=== PATIENT | male | born 1940 | race Caucasian/White ===

== ENCOUNTER → 2017-11-28 | Outpatient (CLI) | payer BC ==
[2014-02-14 12:19] VITALS: BMI 22.2
[~2017-11-28] MED LIST: ACET-2031 PO; ASP325 PO; ASPI-715 PO; ASPI-870 PO; ATOR20TA22 PO; ATOR20TA65 PO; ATRO5DRO OP; BACDS PO; CARB-71 PO; CEPH-13 PO; CHOL10005 PO; FINA5TAB67 PO; FLU180SY9 IM; FLU45SYR17 IM; FLU45SYR25 IM ONLY; LEVO-3 PO; LEVO150T72 PO; LISI-362 PO; LISI2.5T60 PO; METF-410 PO; METXR500 PO; MULT-820 PO; OMEP-153 PO; PHEN100C82 PO; PNEI IJ; PNEU0.5D3 IM; TAM4 PO; TAMS0.4C70 PO; [UNRECOGNIZED DRUG - CODE] PO
[2017-11-28 15:15] LABS: PLATELET COUNT, AUTOMATED 205 K/uL (150-450)
[2017-11-28 15:25] LABS: LDL CHOLESTEROL 78 mg/dl
== END ==
LOC: LAB 14:52
PROVIDERS: ATTEND Internal Medicine
DX: E78.5 Hyperlipidemia, unspecified (principal); I10 Essential (primary) hypertension; E03.9 Hypothyroidism, unspecified; G20 Parkinson's disease; E11.9 Type 2 diabetes mellitus without complications
CPT/HCPCS: 36415; 81001; 82040; 82247; 82310; 82374; 82435; 82465; 82565; 82947; 83036; 83718; 84075; 84132; 84155; 84295; 84443; 84450; 84460; 84478; 84520; 85025

== ENCOUNTER → 2017-12-19 | Outpatient (CLI) | payer BC ==
[2014-02-14 12:19] VITALS: BMI 22.2
[~2017-12-19] MED LIST changes: +BARIUM SULFATE 148 GM POWDER ONE; +BARIUM SULFATE 240 ML ORAL SUS (NECTAR) ONE; +LEVO88TA45 PO; -METF-410 PO; +METF-411 PO
--- NOTE | 2017-12-19 17:15 | RADIOLOGY IMAGING REPORT ---
FACILITY: [facility] [place] PATIENT NAME: Luis Eduardo Alvarado : 1940 MR: [id number] V: [id number] EXAM DATE: ORDERING PHYSICIAN: URIEL MAYEN TECHNOLOGIST: Location: [facility] [place] Patient: Luis Eduardo Alvarado : 1940 Visit/Account:[id number] Date of Sevice: 12/19/2017 ADDENDUM #1 Of the first sentence of the findings section should state also the fluoroscopic assistance was provi ded. Report Dictated By: Mary Lambert MD at 12/19/2017 5:12 PM Report E-Signed By: Mary Lambert MD at 12/19/2017 5:12 PM ORIGINAL REPORT Exam type: ESOPH VIDEO SWALLOWING History: The consistencies, history of throat cancer Comparison: Esophagram November 21, 2012. Findings: The modified barium swallow was performed by the speech pathologist. The patient received various li quids and food substances. There was some silent aspiration observed during the examination. Please see the speech pathologist report for complete details. The fluoroscopy dose area product was 780.8 5 micro-Araiza per meter squared IMPRESSION: 1. As above Report Dictated By: Mary Lambert MD at 12/19/2017 5:09 PM Report E-Signed By: Mary Lambert MD at 12/19/2017 5:11 PM WSN:[id number]
--- NOTE | 2017-12-20 15:00 | SLP MODIFIED BARIUM SWALLOW ---
Speech Language Pathology Modified Barium Swallow Evaluation Report Date of Evaluation: 12/19/2017 Patient Name: Luis Eduardo Alvarado Jr. Patient : 1940 Physician: Néstor Miguel MD Clinician: Jillian Vang M.S., CCC-DIRECTORY ASSISTANCE OPERATOR, Deja Coats B.A., [facility] BACKGROUND The patient is a 77 yr old male. He was referred for an MBS by his physician to assess swallow structure and function as indicated by s/s of pharyngeal dysphagia including coughing/choking with liquids . The patient has a history of throat cancer, right side [place] Palsy and Parkinsons. The patient reported present level of diet modification as thicken liquids. No recent hx of pneumonia. 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 Trials were repeated in the anterior view with the following consistencies: nectar thick barium liquid with straw sips, barium marked puree. Cup rim sips were not trialed d/t the patient reporting using only straws with liquids. ORAL STAGE Thin Liquids: Not presented. [place] Thick Liquids: Moderate dysphagia. Anterior spillage. Multiple attempts to suck liquid through the straw d/t decreased labial seal. Delayed swallow initiation. Compensatory: Straw sips. Pureed Foods: Mild dysphagia. Slow A-P transit. Delayed swallow initiation. Compensatory: Multiple swallows to clear oral cavity. Mechanical Soft: Mild Dysphagia. Slow A-P transit. Delayed swallow initiation. Compensatory: none used Regular Foods: Moderate-Severe dysphagia. Unproductive/repetitive mastication. Meat became lodged on the right side between dentures and buccal surface. Required multiple finger sweeps to remove from oral cavity. Compensatory: Lingual sweep- unsuccessful, chin tuck- unsuccessful, liquid wash- unsuccessful PHARYNGEAL STAGE [place] Thick Liquids: Moderate dysphagia. Significant residuals in epiglottic vallecula, pyriform sinus and lower posterior pharyngeal wall. Pyriform sinus and posterior pharyngeal wall largely cleared with cued multiple swallow and chin tuck. Without chin tuck: Trace silent aspiration in 3/6 trials cleared with prompt to cough and multiple swallows. Penetration with accumulation in 2/6 trials cleared with prompt to cough and multiple swallows. With chin tuck: Penetration with accumulation in 2/5 trials cleared with prompt to cough. Flash penetration in 2/5 trials cleared with multiple swallows. Pureed Food: Moderate dysphagia. Significant residuals on lower anterior and posterior pharyngeal wall and in epiglottic vallecula cleared with cued multiple swallows and chin tuck. Mechanical Soft Foods: Mild dysphagia. Mild residuals on lower anterior and posterior pharyngeal wall and in epiglottic vallecula cleared with cued multiple swallow and chin tuck. Regular Food Consistency: Pt s attempts to manipulate the bolus for AP transit to the oropharynx were unsuccessful. Bolus had to be removed manually. Anterior/Posterior View During trials of nectar thick liquid and puree, accumulation of stasis was observed on the right side most likely due to the patients facial palsy. Compensatory head turns to the right and the left were unsuccessful michaela to reducing or clearing stasis. Penetration/Aspiration Scale*: [place] thick liquids: Score of 8=~material enters the airway, passes below the vocal folds, and no effort is made to eject. Puree: Score of 1= Contrast does not enter airway Soft solids: Score of 1= material does not enter airway Regular solids= unsuccessful attempts *(Eve et al. 1996) ESOPHAGEAL STAGE Peristaltic movement appears to be WNL Cervical Esophagus: Materials witnessed clearing from cervical esophagus with multiple swallows Thoracic Esophagus: Materials witnessed clearing from upper/mid/lower thoracic esophagus. Barium pill required compensation from liquid wash, addition of puree and multiple swallows to clear esophagus ANIBAL: none witnessed. Laryngopharyngeal Reflux (LPR): none witnessed BARIUM PILL: Patient reported taking pills with saliva with no additional liquids at home. Multiple trials attempted. Trial #1: 1cm barium pill taken with saliva swallow. Pill became lodged in pyriform sinus above UES. Pill moved to the level of approximately the 6th cervical vertebrae with second dry swallow. Pill moved to mid thoracic esophagus with third dry swallow. Puree was added for fourth and fifth swallows to clear pill from esophagus. Moderate oral and pharyngeal dysphagia witnessed. Trial #2: 1 cm barium pill repeated with puree. Pill became lodged just below UES. Second swallow moved pill to mid thoracic esophagus. Three additional swallows with puree were required to clear the pill from the esophagus. No significant oral or pharyngeal dysphagia witnessed with pill this trial SUMMARY Aspiration Risk: Elevated. Aspiration during swallow, without cough response witnessed. Penetration of post swallow nectar thick liquid with accumulation on vocal folds from epiglottic vallecula stasis witnessed. Patient was prompted to cough to penetrated/aspirated material. This technique was largely successful. Significant stasis in epiglottic vallecula, pyriform sinus and lower anterior and posterior pharyngeal pettit following thin/nectar liquids and food swallows posts increased aspiration risk. Cues for multiple swallows to clear residuals on anterior and posterior pharyngeal wall and epiglottic vallecular with nectar thick liquid, puree and mechanical soft consistencies: Successful Cues for chin tuck to protect airway during all consistencies: Successful Cues for head turn to the left or right to decrease right stasis and residuals- unsuccessful 1.Dysphagia Severity Rating Scale (Gramigna, 2006; Sonja et. al., 1990) 4- Moderate dysphagiasignificant potential for aspiration exists. Trace aspiration of one or more consistencies was seen under videofluoroscopy. Patient may eat certain consistencies by using specific techniques to minimize potential for aspiration and/or to facilitate swallowing. Supervision at mealtimes required to implement compensatory/safety strategies. May require supplemental nutrition orally or via feeding tube. Functional Oral Intake Scale (FOIS) Level 5: Total oral intake of multiple consistencies requiring special preparation: Thickened liquids and moist/soft foods. Use compensatory techniques (described below) with all consistencies. RECOMMENDATIONS Presented verbally and in writing to patient after examination 1. Outpatient/Home Health Speech Therapy: to address oral / laryngeal / pharyngeal / dysphagia per discretion of DIRECTORY ASSISTANCE OPERATOR and physician. 2. Diet Modifications: [place] thick liquids only. Moist/soft foods. 3. Pills: Crush pills when possible. Take additional pills with multiple swallows of puree. RECOMMENDED COMPENSATORY TECHNIQUES Presented verbally and in writing to patient after examination Compensatory Techniques: -Avoid problematic foods -Add extra moisture to foods -Pt should be cued for multiple swallows on every swallow of liquid and food to clear pharyngeal stasis on all consistencies. -Pt should be cued to cough/clear throat following liquid swallows -Perform chin tuck with all swallows on all consistencies. -Remain upright approximately 30 following meals/liquids. Thank you for this referral. Please call [phone] to contact the DIRECTORY ASSISTANCE OPERATOR. Jillian Vang M.S., [facility]-DIRECTORY ASSISTANCE OPERATOR MTDD
--- NOTE | 2017-12-20 15:45 | SLP MODIFIED BARIUM SWALLOW ---
Speech Language Pathology Modified Barium Swallow Evaluation Report Date of Evaluation: 12/19/2017 Patient Name: Luis Eduardo Alvarado Jr. Patient : 1940 Physician: Néstor Miguel MD Clinician: Jillian Vang M.S., CCC-EXHIBITION SPECIALIST, Deja Coats B.A., [facility] [place] BACKGROUND The patient is a 77 yr old male. He was referred for an MBS by his physician to assess swallow structure and function as indicated by s/s of pharyngeal dysphagia including coughing/choking with liquids . The patient has a history of throat cancer, right side [place] Palsy and Parkinsons. The patient reported present level of diet modification as thicken liquids. No recent hx of pneumonia. Oxygen Supplementation: No Level of Consciousness: Non altered Cognitive/Linguistic: WNL Orientation: x3 Language: -expressive: nonaphasic -receptive: nonaphasic Speech: -non-apraxic -non-dysarthric Voice -Quality: Breathy, Soft -Dysphonia: none -Nasal emission: No -Hypernasality: No -Wet Vocal Quality: No -Sialorrhea: Yes Non-verbal Oral Structure and Function: Right side [place] Palsy with right side paresis of lower face, Pt unable to perform lingual sweep on right side, Open resting mouth position, Pt reported wearing ill-fitting dentures resulting in difficulty chewing Pain with Swallow: Denies MODIFIED BARIUM SWALLOW In conjunction with radiology, lateral view with trials of the following consistencies: nectar thick barium liquid with straw sips, barium marked pureed , mechanical soft, regular food consistencies, and a 1cm barium pill x2. Trials were repeated in the anterior view with the following consistencies: nectar thick barium liquid with straw sips, barium marked puree. Cup rim sips were not trialed d/t the patient reporting using only straws with liquids. ORAL STAGE Thin Liquids: Not presented. [place] Thick Liquids: Moderate dysphagia. Anterior spillage. Multiple attempts to suck liquid through the straw d/t decreased labial seal. Delayed swallow initiation. Compensatory: Straw sips. Pureed Foods: Mild dysphagia. Slow A-P transit. Delayed swallow initiation. Compensatory: Multiple swallows to clear oral cavity. Mechanical Soft: Mild Dysphagia. Slow A-P transit. Delayed swallow initiation. Compensatory: none used Regular Foods: Moderate-Severe dysphagia. Unproductive/repetitive mastication. Meat became lodged on the right side between dentures and buccal surface. Required multiple finger sweeps to remove from oral cavity. Compensatory: Lingual sweep- unsuccessful, chin tuck- unsuccessful, liquid wash- unsuccessful PHARYNGEAL STAGE [place] Thick Liquids: Moderate dysphagia. Significant residuals in epiglottic vallecula, pyriform sinus and lower posterior pharyngeal wall. Pyriform sinus and posterior pharyngeal wall largely cleared with cued multiple swallow and chin tuck. Without chin tuck: Trace silent aspiration in 3/6 trials cleared with prompt to cough and multiple swallows. Penetration with accumulation in 2/6 trials cleared with prompt to cough and multiple swallows. With chin tuck: Penetration with accumulation in 2/5 trials cleared with prompt to cough. Flash penetration in 2/5 trials cleared with multiple swallows. Pureed Food: Moderate dysphagia. Significant residuals on lower anterior and posterior pharyngeal wall and in epiglottic vallecula cleared with cued multiple swallows and chin tuck. Mechanical Soft Foods: Mild dysphagia. Mild residuals on lower anterior and posterior pharyngeal wall and in epiglottic vallecula cleared with cued multiple swallow and chin tuck. Regular Food Consistency: Pt s attempts to manipulate the bolus for AP transit to the oropharynx were unsuccessful. Bolus had to be removed manually. Anterior/Posterior View During trials of nectar thick liquid and puree, accumulation of stasis was observed on the right side most likely due to the patients facial palsy. Compensatory head turns to the right and the left were unsuccessful michaela to reducing or clearing stasis. Penetration/Aspiration Scale*: [place] thick liquids: Score of 8=~material enters the airway, passes below the vocal folds, and no effort is made to eject. Puree: Score of 1= Contrast does not enter airway Soft solids: Score of 1= material does not enter airway Regular solids= unsuccessful attempts *(Eve et al. 1996) ESOPHAGEAL STAGE Peristaltic movement appears to be WNL Cervical Esophagus: Materials witnessed clearing from cervical esophagus with multiple swallows Thoracic Esophagus: Materials witnessed clearing from upper/mid/lower thoracic esophagus. Barium pill required compensation from liquid wash, addition of puree and multiple swallows to clear esophagus ANIBAL: none witnessed. Laryngopharyngeal Reflux (LPR): none witnessed BARIUM PILL: Patient reported taking pills with saliva with no additional liquids at home. Multiple trials attempted. Trial #1: 1cm barium pill taken with saliva swallow. Pill became lodged in pyriform sinus above UES. Pill moved to the level of approximately the 6th cervical vertebrae with second dry swallow. Pill moved to mid thoracic esophagus with third dry swallow. Puree was added for fourth and fifth swallows to clear pill from esophagus. Moderate oral and pharyngeal dysphagia witnessed. Trial #2: 1 cm barium pill repeated with puree. Pill became lodged just below UES. Second swallow moved pill to mid thoracic esophagus. Three additional swallows with puree were required to clear the pill from the esophagus. No significant oral or pharyngeal dysphagia witnessed with pill this trial SUMMARY Aspiration Risk: Elevated. Aspiration during swallow, without cough response witnessed. Penetration of post swallow nectar thick liquid with accumulation on vocal folds from epiglottic vallecula stasis witnessed. Patient was prompted to cough to penetrated/aspirated material. This technique was largely successful. Significant stasis in epiglottic vallecula, pyriform sinus and lower anterior and posterior pharyngeal pettit following thin/nectar liquids and food swallows posts increased aspiration risk. Cues for multiple swallows to clear residuals on anterior and posterior pharyngeal wall and epiglottic vallecular with nectar thick liquid, puree and mechanical soft consistencies: Successful Cues for chin tuck to protect airway during all consistencies: Successful Cues for head turn to the left or right to decrease right stasis and residuals- unsuccessful 1.Dysphagia Severity Rating Scale (Gramigna, 2006; Sonja et. al., 1990) 4- Moderate dysphagiasignificant potential for aspiration exists. Trace aspiration of one or more consistencies was seen under videofluoroscopy. Patient may eat certain consistencies by using specific techniques to minimize potential for aspiration and/or to facilitate swallowing. Supervision at mealtimes required to implement compensatory/safety strategies. May require supplemental nutrition orally or via feeding tube. Functional Oral Intake Scale (FOIS) Level 5: Total oral intake of multiple consistencies requiring special preparation: Thickened liquids and moist/soft foods. Use compensatory techniques (described below) with all consistencies. RECOMMENDATIONS Presented verbally and in writing to patient after examination 1. Outpatient/Home Health Speech Therapy: to address oral / laryngeal / pharyngeal / dysphagia per discretion of EXHIBITION SPECIALIST and physician. 2. Diet Modifications: [place] thick liquids only. Moist/soft foods. 3. Pills: Crush pills when possible. Take additional pills with multiple swallows of puree. RECOMMENDED COMPENSATORY TECHNIQUES Presented verbally and in writing to patient after examination Compensatory Techniques: -Avoid problematic foods -Add extra moisture to foods -Pt should be cued for multiple swallows on every swallow of liquid and food to clear pharyngeal stasis on all consistencies. -Pt should be cued to cough/clear throat following liquid swallows -Perform chin tuck with all swallows on all consistencies. -Remain upright approximately 30 following meals/liquids. Thank you for this referral. Please call [facility] [place] at [phone] to contact the EXHIBITION SPECIALIST. Jillian Vang M.S., [facility]-EXHIBITION SPECIALIST [place]
== END ==
LOC: RAD 09:53
PROVIDERS: ATTEND Internal Medicine
DX: G20 Parkinson's disease (principal); Z85.819 Personal history of malignant neoplasm of unspecified site of lip, oral cavity, and pharynx
CPT/HCPCS: 74230

== ENCOUNTER → 2018-02-13 | Outpatient (CLI) | payer BC ==
[2014-02-14 12:19] VITALS: BMI 22.2
[~2018-02-13] MED LIST changes: -BARIUM SULFATE 148 GM POWDER ONE; -BARIUM SULFATE 240 ML ORAL SUS (NECTAR) ONE
== END ==
LOC: LAB 09:11
PROVIDERS: ATTEND Urology
DX: R97.20 Elevated prostate specific antigen [PSA] (principal)
CPT/HCPCS: 36415; 84153

== ENCOUNTER 2018-04-08 09:56 | Emergency (ER) | payer BC ==
[2014-02-14 12:19] VITALS: Wt 74.6 kg
--- NOTE | 2018-04-08 10:00 | ER Report ---
History and Physical Time Seen By MD: 10:00 HPI/ROS CHIEF COMPLAINT: Seizure HISTORY OF PRESENT ILLNESS: Patient is a 77-year-old male who lives in [facility]. He is brought in by family for concern of 2 seizures that occurred in the last 24 hours. According to the of the patient had a seizure in the early hours of this morning that lasted approximately 2-3 minutes. She described as tonic-clonic type seizures. The seizure resolved spontaneously and the patient went back to sleep. Later a this morning he had a 2nd similar type of seizure. Patient does have a known history of seizure disorder and currently takes Dilantin. Patient's states that she he has been compliant with his medications. Patient also has a history of Parkinson's disease and drooling from the right side of the mouth with history of Baires's palsy years ago. There is no history of recent traumatic head injury. Patient is not on any anticoagulation. notes that over the last 24 hours the patient seems much more weak and not himself. REVIEW OF SYSTEMS: Constitutional: No fever, no chills. Eyes: No discharge. ENT: No sore throat. Drooling Cardiovascular: No chest pain, no palpitations. Respiratory: No cough, no shortness of breath. Gastrointestinal: No abdominal pain, no vomiting. Genitourinary: No hematuria. Musculoskeletal: No back pain. Skin: No rashes. Neurological: Seizure, history of Parkinson's disease Allergies: Coded Allergies: No Known Drug Allergies (Unverified , 02/13/14) Home Meds Active Scripts Atorvastatin Calcium (ATORVASTATIN CALCIUM) 20 Mg Tablet, 1 TAB PO QDAY, #90 TAB 3 Refills Prov:URIEL MAYEN MD 12/18/17 Levothyroxine Sodium (LEVOTHYROXINE SODIUM) 88 Mcg Tablet, 88 MCG PO QDAY, #90 TAB 3 Refills Prov:URIEL MAYEN MD 11/30/17 Carbidopa/Levodopa (SINEMET 25-100 MG TABLET) 1 Each Tablet, 1 EACH PO TID, #270 TAB 3 Refills Prov:URIEL MAYEN MD 09/04/16 Tamsulosin Hcl (TAMSULOSIN HCL) 0.4 Mg Cap.er.24h, 1 CAP PO DAILY, #90 CAP 3 Refills Prov:URIEL MAYEN MD 09/04/16 Finasteride (FINASTERIDE) 5 Mg Tablet, 1 TAB PO QDAY, #90 TAB 3 Refills Prov:RUIEL MAYEN MD 09/04/16 Reported Medications Cholecalciferol (Vitamin D3) (VITAMIN D3) 1,000 Unit Tablet, 1000 TAB PO DAILY, #100 TAB 4 Refills 12/01/14 Aspirin (Children's Aspirin) 81 Mg Tab.chew, 1 TAB PO DAILY, #100 TAB 4 Refills 08/03/14 Past Medical/Surgical History History of Parkinson's disease, seizures, DVT, hyperlipidemia, benign prostatic hypertrophy, type II diabetes, hypothyroidism Hx Smoking: Yes Smoking Status: Former Smoker Hx Substance Use Disorder: No Hx Alcohol Use: Yes Constitutional Vital Sign - Last 24 Hours 04/08/18 04/08/18 04/08/18 04/08/18 09:56 09:59 10:03 10:11 Temp 97.9 Pulse ??? 85 82 Resp 20 28 B/P (MAP) 157/83 157/83 (107) Pulse Ox 93 90 O2 Delivery Room Air 04/08/18 04/08/18 04/08/18 04/08/18 10:26 10:30 10:41 10:56 Pulse 83 78 75 Resp 20 28 19 B/P (MAP) 127/68 (87) Pulse Ox 91 89 90 04/08/18 04/08/18 04/08/18 04/08/18 11:00 11:11 11:26 11:30 Pulse ??? 86 Resp 28 B/P (MAP) ???/??? (2095) 134/80 (98) Pulse Ox 91 04/08/18 04/08/18 04/08/18 04/08/18 11:41 11:46 12:00 12:01 Pulse 226 202 203 Resp 13 10 20 B/P (MAP) 133/86 (102) Pulse Ox 86 86 76 04/08/18 04/08/18 04/08/18 04/08/18 12:16 12:30 12:31 12:46 Pulse 82 76 79 Resp 20 20 24 B/P (MAP) 206/199 (201) Pulse Ox 97 97 95 04/08/18 04/08/18 04/08/18 04/08/18 13:00 13:01 13:05 13:30 Pulse 91 Resp 17 B/P (MAP) 243/196 (212) 155/112 (126) 143/68 (93) Pulse Ox 97 04/08/18 13:31 Pulse 84 Resp 25 Pulse Ox 96 Physical Exam General/Constitutional: Patient is awake, alert, nontoxic frail appearance with severe kyphosis of the thoracic spine. Baseline resting tremor Head: Normocephalic and atraumatic. Eyes: Conjunctival clear, Pupils are equal and reactive to light. Extraocular muscles are intact and symmetrical. Sclera are clear and anicteric. Ears:External canals are clear. Tympanic membranes are clear with normal landmarks and light reflex. Nares: No rhinorrhea or bleeding. Turbinates are pink and moist. Oropharyngeal: Mucous membranes are quite dry there is no pharyngeal erythema Neck: Supple, no adenopathy. Cardiovascular: Heart is regular rate and rhythm without audible murmurs, rubs or gallops. Pulmonary: Lungs are clear to auscultation bilaterally. There are no wheezes, rales, or rhonchi. Chest rise is symmetrical Abdomen: Soft, nontender, no guarding or peritoneal signs. Extremities: No gross deformities, No peripheral cyanosis. Resting tremor Neuro: Alert and oriented Skin: No rashes, skin is warm dry and well perfused. Medical Decision Making Data Points Result Diagram: 04/08/18 1031 04/08/18 1031 Laboratory Hematology Test 04/08/18 10:21 04/08/18 10:31 04/08/18 11:25 Whole Blood Glucose 105 mg/DL (75-110) Red Blood Count 4.79 M/uL (4.00-5.60) Mean Corpuscular Volume 91.1 fL (80.0-96.0) Mean Corpuscular Hemoglobin 31.0 pg (26.0-33.0) Mean Corpuscular Hemoglobin Concent 34.1 g/dL (32.0-36.0) Red Cell Distribution Width 13.9 % (11.5-14.5) Mean Platelet Volume 7.2 fL (7.2-11.1) Neutrophils (%) (Auto) 90.6 % (39.4-72.5) Lymphocytes (%) (Auto) 4.6 % (17.6-49.6) Monocytes (%) (Auto) 4.5 % (4.1-12.4) Eosinophils (%) (Auto) 0.0 % (0.4-6.7) Basophils (%) (Auto) 0.3 % (0.3-1.4) Nucleated RBC Relative Count (auto) 0.0 /100WBC Neutrophils # (Auto) 8.6 K/uL (2.0-7.4) Lymphocytes # (Auto) 0.4 K/uL (1.3-3.6) Monocytes # (Auto) 0.4 K/uL (0.3-1.0) Eosinophils # (Auto) 0.0 K/uL (0.0-0.5) Basophils # (Auto) 0.0 K/uL (0.0-0.1) Nucleated RBC Absolute Count (auto) 0.00 K/uL Prothrombin Time 14.0 seconds (12.0-14.4) Prothromb Time International Ratio 1.08 Activated Partial Thromboplast Time 33 seconds (23-35) Sodium Level 138 mmol/L (137-145) Potassium Level 3.4 mmol/L (3.5-5.0) Chloride Level 104 mmol/L (98-107) Carbon Dioxide Level 26 mmol/L (22-30) Blood Urea Nitrogen 15 mg/dl (9-21) Creatinine 0.60 mg/dl (0.66-1.25) Glomerular Filtration Rate Calc > 60.0 Random Glucose 116 mg/dl (75-110) Calcium Level 8.5 mg/dl (8.4-10.2) Magnesium Level 1.6 mg/dl (1.7-2.2) Total Bilirubin 1.0 mg/dl (0.2-1.3) Aspartate Amino Transf (AST/SGOT) 24 U/L (0-35) Alanine Aminotransferase (ALT/SGPT) 18 U/L (0-56) Alkaline Phosphatase 71 U/L (0-126) Troponin I 0.124 ng/ml B-Type Natriuretic Peptide 289 pg/ml (0-100) Total Protein 7.0 g/dl (6.3-8.2) Albumin 3.7 g/dl (3.5-5.0) Phenytoin (Dilantin) Level < 3.0 ug/ml Phenytoin Last Dose Date . Serum Alcohol < 10 mg/dl Urine Color Yellow Urine Clarity Slightly-cloudy Urine pH 5.0 pH (4.8-9.5) Urine Specific Raccoon 1.023 Urine Protein 30 mg/dL (NEGATIVE) Urine Glucose (UA) Negative mg/dL (NEGATIVE) Urine Ketones Trace mg/dL (NEGATIVE) Urine Blood Small (NEGATIVE) Urine Nitrite Negative (NEGATIVE) Urine Bilirubin Negative (NEGATIVE) Urine Urobilinogen 4.0 mg/dL (0.2-1.9) Urine Leukocyte Esterase Negative (NEGATIVE) Urine RBC 1 /HPF (0-2/HPF) Urine WBC 3 /HPF (0-5/HPF) Urine Squamous Epithelial Cells None /LPF (NONE-FEW) Urine Bacteria Negative /HPF (NONE-FEW) Urine Mucus Few /HPF (NONE-FEW) Chemistry Test 04/08/18 10:21 04/08/18 10:31 04/08/18 11:25 Whole Blood Glucose 105 mg/DL (75-110) White Blood Count 9.4 k/uL (4.5-11.0) Red Blood Count 4.79 M/uL (4.00-5.60) Hemoglobin 14.8 g/dL (14.0-18.0) Hematocrit 43.6 % (42.0-52.0) Mean Corpuscular Volume 91.1 fL (80.0-96.0) Mean Corpuscular Hemoglobin 31.0 pg (26.0-33.0) Mean Corpuscular Hemoglobin Concent 34.1 g/dL (32.0-36.0) Red Cell Distribution Width 13.9 % (11.5-14.5) Platelet Count 236 K/uL (150-450) Mean Platelet Volume 7.2 fL (7.2-11.1) Neutrophils (%) (Auto) 90.6 % (39.4-72.5) Lymphocytes (%) (Auto) 4.6 % (17.6-49.6) Monocytes (%) (Auto) 4.5 % (4.1-12.4) Eosinophils (%) (Auto) 0.0 % (0.4-6.7) Basophils (%) (Auto) 0.3 % (0.3-1.4) Nucleated RBC Relative Count (auto) 0.0 /100WBC Neutrophils # (Auto) 8.6 K/uL (2.0-7.4) Lymphocytes # (Auto) 0.4 K/uL (1.3-3.6) Monocytes # (Auto) 0.4 K/uL (0.3-1.0) Eosinophils # (Auto) 0.0 K/uL (0.0-0.5) Basophils # (Auto) 0.0 K/uL (0.0-0.1) Nucleated RBC Absolute Count (auto) 0.00 K/uL Prothrombin Time 14.0 seconds (12.0-14.4) Prothromb Time International Ratio 1.08 Activated Partial Thromboplast Time 33 seconds (23-35) Glomerular Filtration Rate Calc > 60.0 Calcium Level 8.5 mg/dl (8.4-10.2) Magnesium Level 1.6 mg/dl (1.7-2.2) Total Bilirubin 1.0 mg/dl (0.2-1.3) Aspartate Amino Transf (AST/SGOT) 24 U/L (0-35) Alanine Aminotransferase (ALT/SGPT) 18 U/L (0-56) Alkaline Phosphatase 71 U/L (0-126) Troponin I 0.124 ng/ml B-Type Natriuretic Peptide 289 pg/ml (0-100) Total Protein 7.0 g/dl (6.3-8.2) Albumin 3.7 g/dl (3.5-5.0) Phenytoin (Dilantin) Level < 3.0 ug/ml Phenytoin Last Dose Date . Serum Alcohol < 10 mg/dl Urine Color Yellow Urine Clarity Slightly-cloudy Urine pH 5.0 pH (4.8-9.5) Urine Specific Raccoon 1.023 Urine Protein 30 mg/dL (NEGATIVE) Urine Glucose (UA) Negative mg/dL (NEGATIVE) Urine Ketones Trace mg/dL (NEGATIVE) Urine Blood Small (NEGATIVE) Urine Nitrite Negative (NEGATIVE) Urine Bilirubin Negative (NEGATIVE) Urine Urobilinogen 4.0 mg/dL (0.2-1.9) Urine Leukocyte Esterase Negative (NEGATIVE) Urine RBC 1 /HPF (0-2/HPF) Urine WBC 3 /HPF (0-5/HPF) Urine Squamous Epithelial Cells None /LPF (NONE-FEW) Urine Bacteria Negative /HPF (NONE-FEW) Urine Mucus Few /HPF (NONE-FEW) Coagulation Test 04/08/18 10:31 Prothrombin Time 14.0 seconds Prothromb Time International Ratio 1.08 Activated Partial Thromboplast Time 33 seconds Toxicology Test 04/08/18 10:31 Phenytoin (Dilantin) Level < 3.0 ug/ml Phenytoin Last Dose Date . Serum Alcohol < 10 mg/dl Urinalysis Test 04/08/18 11:25 Urine Color Yellow Urine Clarity Slightly-cloudy Urine pH 5.0 pH (4.8-9.5) Urine Specific Raccoon 1.023 Urine Protein 30 mg/dL (NEGATIVE) Urine Glucose (UA) Negative mg/dL (NEGATIVE) Urine Ketones Trace mg/dL (NEGATIVE) Urine Blood Small (NEGATIVE) Urine Nitrite Negative (NEGATIVE) Urine Bilirubin Negative (NEGATIVE) Urine Urobilinogen 4.0 mg/dL (0.2-1.9) Urine Leukocyte Esterase Negative (NEGATIVE) Urine RBC 1 /HPF (0-2/HPF) Urine WBC 3 /HPF (0-5/HPF) Urine Squamous Epithelial Cells None /LPF (NONE-FEW) Urine Bacteria Negative /HPF (NONE-FEW) Urine Mucus Few /HPF (NONE-FEW) EKG/Imaging EKG Interpretation EKG shows sinus rhythm with 1st degree AV block with occasional premature ventricular complexes, left axis deviation and ST segment T-wave abnormalities in the lateral leads. This was compared to an EKG from January 2014 which showed normal sinus rhythm with a left anterior fascicular block the ST segment T-wave abnormalities were not noted at that time. Monitor Interpretation: Normal Sinus Rhythm Imaging FACILITY: PATIENT NAME: Luis Eduardo Alvarado : 1940 MR: [id number] V: [id number] EXAM DATE: ORDERING PHYSICIAN: MARU SHRESTHA TECHNOLOGIST: Location: [facility] [place] Patient: Luis Eduardo Alvarado : 1940 Visit/Account:[id number] Date of Sevice: 04/08/2018 EXAMINATION: CT Head without intravenous contrast HISTORY: Seizure. TECHNIQUE: Axial images were obtained from the skull base to the vertex without intravenous contrast. Sagittal and coronal reformatted images are also submitted. One of the following dose optimization techniques was utilized in the performance of this exam: Automated exposure control; adjustment of the mA and/or kV according to the patient's size; or use of an iterative reconstruction technique. Specific details can be referenced in the facility's radiology CT exam operational policy. COMPARISON: Brain MRI dated 03/17/2010. FINDINGS: Brain volume: Mild generalized volume loss. Ventricles: Negative. Acute ischemic changes: None. Hemorrhage: None. Masses / edema: None. Araiza-white: Negative. White matter: Mild to moderate chronic microvascular ischemic changes. Vessels: Calcified plaque in the carotid siphons. Normal density in the dural venous sinuses. Extra-axial: Negative. Calvarium / skull base: Negative. Visualized sinuses / orbits: Negative. IMPRESSION: No acute intracranial abnormality. Report Dictated By: Dean Larios MD at 04/08/2018 11:25 AM Report E-Signed By: Dean Larios MD at 04/08/2018 11:30 AM WSN:[email or web address] FACILITY: PATIENT NAME: Luis Eduardo Alvarado : 1940 MR: [id number] V: [id number] EXAM DATE: [id number] ORDERING PHYSICIAN: MARU SHRESTHA TECHNOLOGIST: Location: [facility] [place] Patient: Luis Eduardo Alvarado : 1940 Visit/Account:[id number] Date of Sevice: 04/08/2018 Exam type: CHEST SINGLE AP History: Chest Pain Comparison: February 13, 2014. Findings: There is increasing interstitial prominence seen throughout the lungs. Differential diagnosis would include interstitial pulmonary edema or interstitial pneumonia versus interstitial scarring. No evidence of pleural effusions. Cardiac silhouette is normal in size. The right hilum appears more prominent when compared to the prior study IMPRESSION: 1. Increasing interstitial prominence throughout the lungs consistent with interstitial pulmonary edema versus interstitial infiltrates versus interstitial scarring Right hilum appears more prominent when compared to the prior study. Depending upon clinical presentation CT of the thorax with contrast may be helpful Report Dictated By: Mary Lambert MD at 04/08/2018 11:38 AM Report E-Signed By: Mary Lambert MD at 04/08/2018 11:40 AM WSN:[email or web address] ED Course/Re-evaluation ED Course 04/08/2018 10:36:55 am patient with suspected seizures today. Reviewing the electronic medical record there is question of seizures although the patient is currently on Dilantin. Plan at this time will be CT of the head medical workup disposition pending testing 04/08/2018 11:37:04 am troponin returned and the positive range at 0.124. EKG shows sinus rhythm with a first-degree AV block left axis deviation and ST segment T-wave abnormality in the lateral leads. We will give the patient 1 g/kg shot of Lovenox as well as 324 of aspirin. He currently denies any chest pain. 04/08/2018 12:41:11 pm she wasn't undetectable Dilantin level. We'll hold off on doing a phenytoin load at this time. Waiting to hear back from cardiology from [facility] [place]. 04/08/2018 1:11:55 pm I spoke with hospitalist and transportation assistant at [facility]. History physical exam all pertinent lab data ED course were discussed. Hospitalist like us to load with IV Keppra. They have agreed to accept the patient for a cardiac workup with a diagnosis of non-STEMI. Decision to Disposition Date: Apr 08, 2018 Decision to Disposition Time: 13:12 Depart Departure Latest Vital Signs Vital Signs Date Time Temp Pulse Resp B/P (MAP) Pulse Ox O2 Delivery O2 Flow Rate FiO2 04/08/18 13:31 84 25 96 04/08/18 13:30 143/68 (93) 04/08/18 09:59 97.9 Room Air Impression: Primary Impression: NSTEMI (non-ST elevated myocardial infarction) Additional Impression: Seizure Condition: Improved Disposition: [facility]FER TO [facility] (to [facility]) Referrals: URIEL MAYEN MD (PCP) Problem Qualifiers MARU SHRESTHA MD Apr 08, 2018 10:00
[2018-04-08] MEDS ORDERED: NS(*) 0.9% 500 ML BAG 500 ML IV ONE (10:17)
[2018-04-08 10:36] LABS: PLATELET COUNT, AUTOMATED 236 K/uL (150-450)
[2018-04-08 10:49] LABS: INR 1.08
[2018-04-08] MEDS ORDERED: ASPIRIN 81 MG CHEW PO ONE (11:10)
[2018-04-08] MEDS ORDERED: ENOXAPARIN 100 MG/ML SYR SC SCH (11:10)
--- NOTE | 2018-04-08 11:22 | EKG ---
FACILITY: [facility] - [place] PATIENT NAME: OLIMPIA DO : [id number] MR: [id number] V: [id number] EXAM DATE: ORDERING PHYSICIAN: MARU SHRESTHA TECHNOLOGIST: JERZY Chang Reason : Blood Pressure : / mmHG Vent. Rate : 079 BPM Atrial Rate : 079 BPM P-R Int : 220 ms QRS Dur : 120 ms QT Int : 384 ms P-R-T Axes : 038 -63 118 degrees QTc Int : 440 ms Sinus rhythm with 1st degree AV block with occasional premature ventricular complexes Possible Left atrial enlargement Left axis deviation Cannot rule out Inferior infarct , age undetermined Anteroseptal infarct (cited on or before 15-FEB-2014) ST and T wave abnormality, consider lateral ischemia Abnormal ECG When compared with ECG of 15-FEB-2014 15:57, Significant changes have occurred Confirmed by ANN-MARIE HOWELL ([id number]) on 04/08/2018 8:16:07 PM Referred By: Confirmed By:ANN-MARIE HOWELL
--- NOTE | 2018-04-08 11:33 | RADIOLOGY IMAGING REPORT ---
FACILITY: [facility] [place] PATIENT NAME: Luis Eduardo Alvarado : 1940 MR: [id number] V: [id number] EXAM DATE: ORDERING PHYSICIAN: MARU SHRESTHA TECHNOLOGIST: Location: [facility] [place] Patient: Luis Eduardo Alvarado : 1940 Visit/Account:[id number] Date of Sevice: 04/08/2018 EXAMINATION: CT Head without intravenous contrast HISTORY: Seizure. TECHNIQUE: Axial images were obtained from the skull base to the vertex without intravenous contrast . Sagittal and coronal reformatted images are also submitted. One of the following dose optimization techniques was utilized in the performance of this exam: Autom ated exposure control; adjustment of the mA and/or kV according to the patient's size; or use of an i terative reconstruction technique. Specific details can be referenced in the facility's radiology C T exam operational policy. COMPARISON: Brain MRI dated 03/17/2010. FINDINGS: Brain volume: Mild generalized volume loss. Ventricles: Negative. Acute ischemic changes: None. Hemorrhage: None. Masses / edema: None. Araiza-white: Negative. White matter: Mild to moderate chronic microvascular ischemic changes. Vessels: Calcified plaque in the carotid siphons. Normal density in the dural venous sinuses. Extra-axial: Negative. Calvarium / skull base: Negative. Visualized sinuses / orbits: Negative. IMPRESSION: No acute intracranial abnormality. Report Dictated By: Dean Larios MD at 04/08/2018 11:25 AM Report E-Signed By: Dean Larios MD at 04/08/2018 11:30 AM WSN:[email or web address]
--- NOTE | 2018-04-08 11:43 | RADIOLOGY IMAGING REPORT ---
FACILITY: [facility] - [place] PATIENT NAME: Luis Eduardo Alvarado : 1940 MR: [id number] V: [id number] EXAM DATE: ORDERING PHYSICIAN: MARU SHRESTHA TECHNOLOGIST: Location: [facility] [place] Patient: Luis Eduardo Alvarado : 1940 Visit/Account:[id number] Date of Sevice: 04/08/2018 Exam type: CHEST SINGLE AP History: Chest Pain Comparison: February 13, 2014. Findings: There is increasing interstitial prominence seen throughout the lungs. Differential diagnosis would include interstitial pulmonary edema or interstitial pneumonia versus interstitial scarring. No evid ence of pleural effusions. Cardiac silhouette is normal in size. The right hilum appears more promi nent when compared to the prior study IMPRESSION: 1. Increasing interstitial prominence throughout the lungs consistent with interstitial pulmonary ed amber versus interstitial infiltrates versus interstitial scarring Right hilum appears more prominent when compared to the prior study. Depending upon clinical present ation CT of the thorax with contrast may be helpful Report Dictated By: Mary Lambert MD at 04/08/2018 11:38 AM Report E-Signed By: Mary Lambert MD at 04/08/2018 11:40 AM WSN:[email or web address]
[2018-04-08] MEDS ORDERED: levETIRAcetam(*)500 MG/5 ML VI 500 MG in NS(*) 0.9% 100 ML BAG 100 ML IVPB ONE (13:00)
[2018-04-08 13:30] VITALS: BP 143/68
== END 2018-04-08 14:20 | disposition short-term general hospital (02) ==
LOC: ER 10:02
DX: I21.4 Non-ST elevation (NSTEMI) myocardial infarction (principal); R56.9 Unspecified convulsions; E11.9 Type 2 diabetes mellitus without complications
CPT/HCPCS: 36415; 36416; 70450; 71045; 80185; 80320; 81001; 82948; 83735; 83880; 84484; 85025; 85610; 85730; 87088; 93005; 96361; 96365; 96372; 99285; C1758; J1650; J1953; J7040; J7050; 82040; 82247; 82310; 82374; 82435; 82565; 82947; 84075; 84132; 84155; 84295; 84450; 84460; 84520

== ENCOUNTER → 2018-04-08 | Outpatient (CLI) | payer SELFPAY ==
[2014-02-14 12:19] VITALS: BMI 22.2
[~2018-04-08] MED LIST changes: -METF-411 PO; +METF-450 PO
== END ==
LOC: AMB 15:06
PROVIDERS: ATTEND Nurse Practitioner
DX: I21.4 Non-ST elevation (NSTEMI) myocardial infarction (principal)

== ENCOUNTER → 2018-05-28 | Outpatient (CLI) | payer MEDICARE, BC ==
[2014-02-14 12:19] VITALS: BMI 22.2
[~2018-05-28] MED LIST changes: +FLU180SY11 IM; +LEVE750T48 PO
[2018-05-28 11:21] LABS: PLATELET COUNT, AUTOMATED 274 K/uL (150-450)
== END ==
LOC: LAB 10:10
PROVIDERS: ATTEND Internal Medicine
DX: E78.5 Hyperlipidemia, unspecified (principal); I10 Essential (primary) hypertension; E03.9 Hypothyroidism, unspecified; R56.9 Unspecified convulsions; G20 Parkinson's disease; E11.9 Type 2 diabetes mellitus without complications; R63.4 Abnormal weight loss
CPT/HCPCS: 36415; 80177; 82040; 82247; 82310; 82374; 82435; 82565; 82607; 82728; 82746; 82947; 83036; 83540; 83550; 84075; 84132; 84155; 84295; 84443; 84450; 84460; 84520; 85025

== ENCOUNTER → 2018-06-26 | Outpatient (REF) | payer MEDICARE, BC ==
[2014-02-14 12:19] VITALS: BMI 22.2
[~2018-06-26] MED LIST changes: +POTA-23 PO
== END ==
LOC: ZZSENDIN 14:51
PROVIDERS: ATTEND Internal Medicine
DX: I21.4 Non-ST elevation (NSTEMI) myocardial infarction (principal); G40.309 Generalized idiopathic epilepsy and epileptic syndromes, not intractable, without status epilepticus; E11.9 Type 2 diabetes mellitus without complications; Z85.819 Personal history of malignant neoplasm of unspecified site of lip, oral cavity, and pharynx; M62.81 Muscle weakness (generalized); R63.4 Abnormal weight loss; G20 Parkinson's disease; R13.12 Dysphagia, oropharyngeal phase; R47.1 Dysarthria and anarthria; E11.65 Type 2 diabetes mellitus with hyperglycemia
CPT/HCPCS: 82040; 82247; 82310; 82374; 82435; 82565; 82947; 84075; 84132; 84155; 84295; 84450; 84460; 84520

== ENCOUNTER → 2018-11-18 | Outpatient (CLI) | payer BC ==
[2014-02-14 12:19] VITALS: BMI 22.2
[~2018-11-18] MED LIST changes: +ASPI-1471 PO; +CHOL500016 PO; +CYAN25007 SL; +LEVO75TA73 PO
[2018-11-18 11:19] LABS: PLATELET COUNT, AUTOMATED 200 K/uL (150-450)
== END ==
LOC: LAB 10:25
PROVIDERS: ATTEND Family Medicine
DX: G20 Parkinson's disease (principal); E03.9 Hypothyroidism, unspecified
CPT/HCPCS: 36415; 82040; 82247; 82310; 82374; 82435; 82565; 82947; 84075; 84132; 84155; 84295; 84443; 84450; 84460; 84520; 85025

== ENCOUNTER → 2018-12-12 | Outpatient (CLI) | payer BC ==
[2014-02-14 12:19] VITALS: BMI 22.2
[~2018-12-12] MED LIST changes: +BARIUM SULFATE 148 GM POWDER ONE; +BARIUM SULFATE 240 ML ORAL SUS (NECTAR) ONE; +CHOL100058 PO
--- NOTE | 2018-12-12 15:18 | RADIOLOGY IMAGING REPORT ---
FACILITY: [facility] PATIENT NAME: Luis Eduardo Alvarado : 1940 MR: [id number] V: [id number] EXAM DATE: ORDERING PHYSICIAN: ABDIAS BROWN TECHNOLOGIST: Location: [facility] [place] Patient: Luis Eduardo Alvarado : 1940 Visit/Account:[id number] Date of Sevice: 12/12/2018 Exam type: ESOPH VIDEO SWALLOWING History: Aspiration in airway Comparison: None. Findings: Three esophagram was performed by the speech pathologist. Patient received various liquids and solid s substances and a barium tablet. Fluoroscopic assistance was provided. There was moderate oral dys phagia pharyngeal dysphasia and mild laryngeal penetration and aspiration and possible esophageal dys phasia Please see the speech pathologist report for complete details. The dose area product was 1633 .81 micro-Araiza per meter squared IMPRESSION: 1. As above Report Dictated By: Mary Lambert MD at 12/12/2018 3:12 PM Report E-Signed By: Mary Lambert MD at 12/12/2018 3:13 PM WSN:[email or web address]
--- NOTE | 2018-12-13 08:09 | SLP MODIFIED BARIUM SWALLOW ---
MODIFIED BARIUM SWALLOW STUDY REPORT Clinician: Melissa Mak MS, [facility]-SENIOR ENGINEERING TEAM LEADER Type of Assessment: MBSS Patient: Luis Eduardo Alvarado : 36 Evaluation Date: 12/12/18 BACKGROUND The patient is an 78-year-old male referred for a modified barium swallow study (MBSS) by his home health care speech-language pathologist. Referral was placed to objectively evaluate the pts swallow anatomy and physiology for development of appropriate recommendations re: diet modifications, compensatory swallow strategies, and potential oropharyngeal exercises. The pt previously participated in an MBSS approximately 1 year prior. Results illustrated elevated aspiration risk with witnessed aspiration of nectar thick liquids, penetration of post-swallow nectar thick liquids from epiglottic stasis, significant stasis in epiglottic vallecular, pyriform sinus, and pharyngeal pettit. The pt also demonstrated moderate oral dysphagia with anterior spillage, slow A-P transit, and unproductive/repetitive mastication. The pts SENIOR ENGINEERING TEAM LEADER reports he has been adhering to recommended liquids (nectar thick) until ~1 week ago. He has now elected to return to consumption of thin liquids. The patient has a history of throat cancer, R side Acampo palsy, and Parkinsons disease. No reported hx of recent pneumonia. ASSESSMENT Diagnosis: dysphagia Past Medical Hx: Parkionsons disease, seizures, Acampo palsy, laryngeal cancer Pain Scale (0-10): 0 LOC / Participation: Alert and cooperative. Follows instructions: Yes, no difficulty Orientation: A&O x4 Sialorrhea: Yes Xerostomia: No Hygiene: WNL Supplemental Oxygen Use: No COPD Dx: No Pain with Swallow: Denies Oral mechanism examination: R paresis of lower face, partial dentures, restricted lingual and mandibular movement Overall Impression: moderate pharyngeal dysphagia, possible esophageal dysphagia In conjunction with radiology, the pt was seated in the lateral view and analyzed with assisted trials of the following consistencies: thin and nectar thick liquids via single cup sips, pureed solids, mechanically altered solids, advanced solids, regular solids, and 1cm barium pill. Pt presented with moderate oral phase deficits characterized by restricted mandibular movement with incomplete preparation/break-down of solid textures, delayed and effortful anterior to posterior bolus propulsion, and piecemeal deglutition. Anterior spillage was observed with escape of material beyond the pts chin. Apart from anterior spillage, bolus containment was otherwise good with no significant premature posterior loss of material. Pharyngeally, the pt demonstrated delayed swallow onset with thin liquid material penetrating the airway and reaching the pyriform sinuses prior to pharyngeal swallow execution. Pharyngeal transit time appeared rapid with less viscous material, allowing liquids to quickly reach the airway prior to attempting airway protection. After swallow initiation, the patient naturally executed multiple, consecutive swallows. This caused the hyolaryngeal mechanism to be held in a partially superior and anterior position with likely prolonged duration of glottic closure and suspension of penetrated material above the vocal cords. After the pts swallow was completed, however, material passed below the vocal cords. It was not ejected despite attempts. Generalized weakness was also observed with reduced base of tongue retraction, hyolaryngeal elevation and excursion, and reduced posterior pharyngeal wall movement. Decreased tongue base movement paired with reduced hyolaryngeal excursion resulted in large quantity of residual material in the vallecular space. Reduced posterior pharyngeal wall movement correlated to pharyngeal wall residue. UES relaxation was also decreased with obstruction of flow and additional residue in the pyriform sinuses. Reduction in hyolaryngeal excursion further contributed to reduced epiglottic inversion with incomplete closure of the laryngeal vestibule and reduction in airway protection. At home the patient implements the following strategy sequence with consumption of liquids: swallow, swallow 2-3 more times, cough, swallow again. This was implemented under fluoro with trials of thin and nectar thick liquids. Strategy successfully assisted in ejecting penetrated material from the airway with only trace residue of nectar thick liquids. Strategy further appeared to result in a natural Halima maneuver with increased duration of attempted airway closure. Strategy was successful with thin liquids during 1/2 attempts. Mild aspiration occurred during second attempt. Use of effortful and double swallows assisted in clearing pharyngeal residue. With administration of a 1cm barium pill paired with thin liquid, pill became lodged in the vallecular space. Unable to clear despite repeated attempts to wash with pureed, soft, and regular solids. Attempted use of chin tuck; however, this was limited by restricted neck movement. Pill remained in the valleculae upon study completion. From an esophageal standpoint, the material was slow to pass the cervical esophagus, and a pocket-like appearance was observed. Backflow of material was intermittently witnessed from the cervical esophagus back into the pharynx. Potential narrowing was further noted in the thoracic region. No reported history of GERD. Penetration/Aspiration Scale (PAS)*: Thin English Puree Mech Altered Advanced Regular Pill 7 7 1 3 (extracted juices) 2 (barium coating) 1 1 7 4 2 3 (extracted juices) 1 2 2 7 1. Material does not enter airway 2. Material enters the airway, remains above the vocal folds, and is ejected from the airway without residue. 3. Material enters the airway, remains above the vocal folds with visible residue 4. Material enters the airway, contacts the vocal folds, and is ejected from the airway without residue. 5. Material enters the airway, contacts the vocal folds with visible residue. 6. Material enters the ariway, passes below the vocal folds, and is ejected into the larynx or out of the airway. 7. Material enters the airway, passes below the vocal folds, and is not ejected from the trachea despite effort. 8. Material enters the airway, passes below the vocal folds, and no effort is made to eject. *(Eve et al. 1996) SUMMARY and RECOMMENDATIONS Aspiration Risk: moderately elevated. Negative prognostic indicators include witnessed aspiration of thin and nectar thick liquids, penetration with thin, nectar, and pureed solids. Additional risk factors include history of COPD and hiatal hernia with esophageal dysphagia and heightened risk for reflux aspiration. Dysphagia Outcome Severity Scale: Level 6; modified independence. Recommend avoidance of problematic foods, small sip sizes, adherence to general reflux precautions Speech Therapy Need Further, skilled ST interventions not indicated. Provided the pt with a review of MBSS results, including verbal and visual education and a review of recommended compensations with specific emphasis placed on general reflux precautions. RECOMMENDATIONS Recommendations continue to include: 1. Diet: Softer solids would promote efficiency of oral phase. Avoid mixed consistencies (E.g., cereal, thin soups with chunks of solids). 2. Liquids: small, single sips of nectar thick liquids would be a safer option for this patient with consistent adherence to sequence as outlined by HH SENIOR ENGINEERING TEAM LEADER (swallow, swallow again x1-2, cough, re-swallow) 3. Medications: crushed in pureed solids 4. Compensatory Techniques: upright (90 deg) with PO intake, remain upright at least 30 min after PO, consume small bites/sips, one bite/sip at a time, double swallow, effortful swallow, hard [id number] 5. Referrals: GI consult, continue HH per discretion of HH SENIOR ENGINEERING TEAM LEADER. The pt may benefit from exercises to address hyolaryngeal movement and UES relaxation (e.g., Shaker), in addition to exercises to further improve the efficiency of his protective cough response (e.g., EMST). Thank you for this referral. Please do not hesitate to contact the ST department with further questions or concerns. Melissa Mak M.S., [facility]-SENIOR ENGINEERING TEAM LEADER Speech Language Pathologist Physician Signature [*] MTDD
== END ==
LOC: RAD 01:00
PROVIDERS: ATTEND Family Medicine
DX: T17.908A Unspecified foreign body in respiratory tract, part unspecified causing other injury, initial encounter (principal)
CPT/HCPCS: 74230

== ENCOUNTER → 2019-01-15 | Outpatient (CLI) | payer BC ==
[2014-02-14 12:19] VITALS: BMI 22.2
[~2019-01-15] MED LIST changes: -BARIUM SULFATE 148 GM POWDER ONE; -BARIUM SULFATE 240 ML ORAL SUS (NECTAR) ONE
== END ==
LOC: LAB 09:54
PROVIDERS: ATTEND Family Medicine
DX: E03.9 Hypothyroidism, unspecified (principal)
CPT/HCPCS: 36415; 84443